=== PATIENT | female | born 1960 | race Two or more races ===

== ENCOUNTER 2023-07-25 18:36 | Emergency (ER) | payer BC ==
--- NOTE | 2023-07-25 18:51 | ED ---
Fall HPI - General Source: patient, RN notes reviewed Mode of arrival: wheelchair Limitations: no limitations, physical limitation <Danay Eli - Last Filed: 07/25/23 18:50> <Mike Trejo - Last Filed: 07/25/23 20:49> - General Stated Complaint: Fall Time Seen by Provider: 07/25/23 18:50 - History of Present Illness Initial Comments: Quick note: Patient is a 63-year-old female presented to the ER with chief complaint of a fall. Patient states her coat got caught on a chair when she turned and the chair fell. Patient states she hit her right hip. Patient has an extensive history of osteoporosis and reports fractures do not normally show up on x-ray. Denies any head injury, loss consciousness or blood thinners. ( Danay Eli) 63-year-old female with a past medical history significant for osteopenia presenting to the ED with a chief complaint of fall. Patient reports she was at a earlier today. States someone was trying to get her attention and as she was turning/standing to address this person her code got caught on the chair causing her to fall sideways onto her right hip. Denies head injury at this time. Denies any other other injury at this time. Not on thinners. Now notes pain of the right hip. No other complaints at this time. (Mike Trejo) - Related Data Allergies Allergy/AdvReac Type Severity Reaction Status Date / Time Sulfa (Sulfonamide Allergy Unknown Verified 07/25/23 19:10 Antibiotics) Review of Systems ROS Other: All systems not noted in ROS Statement are negative. <Danay Eli - Last Filed: 07/25/23 18:50> ROS Other: All systems not noted in ROS Statement are negative. <Mike Trejo - Last Filed: 07/25/23 20:49> ROS Statement: Those systems with pertinent positive or pertinent negative responses have been documented in the HPI. General Exam <Danay Eli - Last Filed: 07/25/23 18:50> General appearance: alert, in no apparent distress Eye exam: Present: normal appearance Neck exam: Present: normal inspection Respiratory exam: Present: normal lung sounds bilaterally Cardiovascular Exam: Present: regular rate, normal rhythm GI/Abdominal exam: Present: soft Extremities exam: Present: other (Strength and sensation intact in bilateral lower extremities. DP/PT pulses palpable. Pelvis is stable upon rocking. Able to actively internally and externally rotate her right leg.) Back exam: Present: other (No midline spinal tenderness to palpation.) Neurological exam: Present: alert, oriented X3 Skin exam: Present: warm, dry <Mike Trejo - Last Filed: 07/25/23 20:49> - General Exam Comments Initial Comments: Visual Physical Exam Vital signs reviewed General: Well-appearing, nontoxic, no acute distress. Head: Normocephalic, atraumatic Eyes: PERRLA, EOMI ENT: Airway patent Chest: Nonlabored breathing Skin: No visual rash, normal skin tone Neuro: Alert and oriented 3 Musculoskeletal: No gross abnormalities (Danay Eli) Course Vital Signs 07/25/23 19:04 Temperature 97.9 F Pulse Rate 77 Respiratory 18 Rate Blood Pressure 160/75 O2 Sat by Pulse 94 L Oximetry Medical Decision Making <Danay Eli - Last Filed: 07/25/23 18:50> <Mike Trejo - Last Filed: 07/25/23 20:49> - Medical Decision Making I performed the quick note portion of this chart. Electronically signed by Danay Eli PA-C (Danay Eli) Was pt. sent in by a medical professional or institution (VENKATA Joshi, DAIRY AND FOOD LABORATORY ASSISTANT, urgent care, hospital, or care home...) When possible be specific @ -No Did you speak to anyone other than the patient for history (EMS, parent, family, police, friend...)? What history was obtained from this source @ -No Did you review nursing and triage notes (agree or disagree)? Why? @ -I reviewed and agree with nursing and triage notes Were old charts reviewed (outside hosp., previous admission, EMS record, old EKG, old radiological studies, urgent care reports/EKG's, care home records)? Report findings @ -No old charts were reviewed Differential Diagnosis (chest pain, altered mental status, abdominal pain women, abdominal pain men, vaginal bleeding, weakness, fever, dyspnea, syncope, headache, dizziness, GI bleed, back pain, seizure, CVA, palpatations, mental health, musculoskeletal)? @ -Differential Musculoskeletal Muscular strain, contusion, ligament sprain, fracture, arthritis, septic arthritis, bursitis, cellulitis, muscle spasm, nerve compression, DVT, arterial occlusion, herpes zoster, electrolyte abnormality, tumor.... This is not meant to be in all inclusive list EKG interpreted by me (3pts min.). @ -As above X-rays interpreted by me (1pt min.). @ -X-ray of the right hip/pelvis interpreted me showing no evidence of acute finding. CT interpreted by me (1pt min.). @ -None done U/S interpreted by me (1pt. min.). @ -None done What testing was considered but not performed or refused? (CT, X-rays, U/S, labs)? Why? @ -None What meds were considered but not given or refused? Why? @ -None Did you discuss the management of the patient with other professionals (professionals i.e. , PA, DAIRY AND FOOD LABORATORY ASSISTANT, lab, RT, psych nurse, social media sr strategy manager, back tender fourdrinier, teacher, contact officer, manager rn case)? Give summary @ -No Was smoking cessation discussed for >3mins.? @ -No Was critical care preformed (if so, how long)? @ -No Were there social determinants of health that impacted care today? How? (Homelessness, low income, unemployed, alcoholism, drug addiction, transportation, low edu. Level, literacy, decrease access to med. care, [facility], rehab)? @ -No Was there de-escalation of care discussed even if they declined (Discuss DNR or withdrawal of care, Hospice)? DNR status @ -No What co-morbidities impacted this encounter? (DM, HTN, Smoking, COPD, CAD, Cancer, CVA, ARF, Chemo, Hep., AIDS, mental health diagnosis, sleep apnea, morb id obesity)? @ -None Was patient admitted / discharged? Hospital course, mention meds given and route, prescriptions, significant lab abnormalities, going to OR and other pertinent info. @ -Discharge 63-year-old female presenting to the ED with a chief complaint of right hip injury after mechanical fall. There is no head injury at this time. Patient not on blood thinners. No other injuries at this time. Imaging showed no acute findings. Exam showed full active range of motion. Offered prescriptions for analgesics and crutches which at this point patient declined. Discharged home in stable condition. Advise follow-up with PCP. Discussed return precautions patient family who verbalized agreement. Undiagnosed new problem with uncertain prognosis? @ -No Drug Therapy requiring intensive monitoring for toxicity (Heparin, Nitro, Insulin, Cardizem)? @ -No Were any procedures done? @ -No Diagnosis/symptom? @ -Right hip pain Acute, or Chronic, or Acute on Chronic? @ -Acute Uncomplicated (without systemic symptoms) or Complicated (systemic symptoms)? @ -Uncomplicated Side effects of treatment? @ -No Exacerbation, Progression, or Severe Exacerbation? @ -No Poses a threat to life or bodily function? How? (Chest pain, USA, CA, pneumonia, PE, COPD, DKA, ARF, appy, cholecystitis, CVA, Diverticulitis, Homicidal, Suicidal, threat to staff... and all critical care pts) @ -No (Mike Trejo) Disposition <Danay Eli - Last Filed: 07/25/23 18:50> Is patient prescribed a controlled substance at d/c from ED?: No Time of Disposition: 20:49 <Mike Trejo - Last Filed: 07/25/23 20:49> Clinical Impression: Right hip pain Disposition: HOME SELF-CARE Condition: Good Instructions (If sedation given, give patient instructions): Hip Pain (ED) Additional Instructions: Please return to the Emergency Department if symptoms worsen or any other concerns. Please follow-up with your PCP. Referrals: Yang Michel DO [Primary Care Provider] - 1-2 days
[2023-07-25] MEDS: KETOROLAC 15 MG/ML 1 ML VIAL IM STA (20:06)
--- NOTE | 2023-07-25 20:26 | XR ---
PROCEDURE: XR Hip RT and AP Pelvis - 3V DATE AND TIME: 07/25/2023 7:39 PM CLINICAL INDICATION: PHH; fall TECHNIQUE: Department protocol COMPARISON: None FINDINGS: There is no fracture or malalignment. The soft tissues are unremarkable. IMPRESSION: NO ACUTE PROCESS.
[2023-07-25 21:31] VITALS: BP 150/76; PULSE 68; RESP 16; TEMP 98
== END 2023-07-25 21:16 | disposition home or self-care (01) ==
LOC: EC 18:36
DX: M25.551 Pain in right hip (principal); Z88.2 Allergy status to sulfonamides
CPT/HCPCS: 73502; 99283; 96372; J1885